=== PATIENT | male | born 1990 | race Two or more races ===

== ENCOUNTER 2017-12-22 15:41 | Emergency (ER) | payer OTHER ==
[~2017-12-22] VITALS: Ht 175.3 cm; Wt 78.5 kg
[2017-12-22 15:49] VITALS: BP 135/92
[2017-12-22] MEDS ORDERED: ALBUTEROL/IPRATROPIUM 2.5MG/0.5MG, 3 ML NPPB ONE (16:00)
[2017-12-22] MEDS ORDERED: ALBUTEROL/IPRATROPIUM 2.5MG/0.5MG, 3 ML ONE (16:10)
== END 2017-12-22 17:20 | disposition home or self-care (01) ==
LOC: ED 17:08
DX: J20.9 Acute bronchitis, unspecified (principal); J45.909 Unspecified asthma, uncomplicated
CPT/HCPCS: 71046; 93005; 94640; 99284; J7512; J7620

== ENCOUNTER 2020-06-05 19:34 | Inpatient (IN) | payer OTHER ==
[~2020-06-05] VITALS: Ht 177.8 cm; Wt 87.3 kg
[2020-06-05] MEDS ORDERED: ALBUTEROL SULFATE 2.5 MG/3 ML ONE ×2 (20:09→20:30)
--- NOTE | 2020-06-05 20:12 | NUR ---
PT PRESENTS WITH EXPIRATORY WHEEZING IN ALL LUNG FEILDS. VERBAL ORDERS FROM DR MOHR TO GIVE ALBUTEROL BREATHING TREATMENT. PT STATES ONLY PMH IS ASTHMA BUT HE HASN'T BEEN DIAGNOSED. ARISTIDES AT BEDSIDE
[2020-06-05] MEDS: ALBUTEROL SULFATE 2.5 MG/3 ML NPPB SCH ×2 (20:21→20:32)
--- NOTE | 2020-06-05 20:30 | NUR ---
DR MOHR UPDATED, PT STILL WHEEZING, NO IMPROVEMENT AFTER FIRST NEB TREATMENT, VERBAL ORDERS TO GIVE 2ND TREATMENT. PO STEROIDS GIVEN WELL.
--- NOTE | 2020-06-05 20:48 | NUR ---
2ND TREATMENT GIVEN. PT STILL WITH EXPIRATORY WHEEZING, PT STATES "IT FEELS LIKE IT GOT TIGHTER".
[2020-06-05] MEDS ORDERED: ALBUTEROL 0.5%, 20ML ONE (21:18)
--- NOTE | 2020-06-05 21:18 | NUR ---
ASSUMED CARE OF PATIENT WHILE PRIMARY RN IS ON BREAK. VS STABLE. OXYGEN ON. PULSE OX ON. RT CALLED.
--- NOTE | 2020-06-05 21:43 | NUR ---
BREAK RN: DR MOHR IN ROOM
--- NOTE | 2020-06-05 21:50 | NUR ---
BREAK RN: BEDSIDE REPORT GIVEN TO JUVENCIO WILSON
[2020-06-05] MEDS ORDERED: MAGNESIUM SULFATE/D5W 100 ML IVPB ONE (22:00)
[2020-06-05] MEDS ORDERED: MAGNESIUM SULFATE/D5W 100 ML ONE (22:01)
[2020-06-05] MEDS ORDERED: hydrALAzine 20 MG/ML, 1ML IVPush PRN (23:30)
[2020-06-05] MEDS ORDERED: ONDANSETRON 2MG/ML, 2ML IVPush PRN (23:30)
[2020-06-05] MEDS ORDERED: ONDANSETRON ODT 4 MG PO PRN (23:30)
[2020-06-05] MEDS ORDERED: POLYETHYLENE GLYCOL 17 GM PACKET PO PRN (23:30)
[2020-06-05] MEDS ORDERED: PROMETHAZINE 25 MG/ML, 1ML IM PRN (23:30)
[2020-06-05] MEDS ORDERED: BISACODYL 10 MG SUPP PR PRN (23:30)
[2020-06-05] MEDS ORDERED: KETOROLAC 30 MG/1 ML IV PRN (23:30)
[2020-06-05] MEDS ORDERED: ACETAMINOPHEN 325 MG TABLET PO PRN (23:30)
[2020-06-05] MEDS ORDERED: DOCUSATE 100 MG CAPSULE PO PRN (23:30)
--- NOTE | 2020-06-06 00:16 | NUR ---
report given to Melanie HENNING
[2020-06-06 00:43] VITALS: BP 159/99
[2020-06-06] MEDS: AZITHROMYCIN 500 MG in SODIUM CHLORIDE 0.9% 250 ML IV SCH ×2 (01:32→23:16)
[2020-06-06] MEDS: SODIUM CHLORIDE 0.9% 1,000 ML IV SCH ×2 (01:33→08:36)
[2020-06-06] MEDS: ALBUTEROL HFA 90 MCG/SPRAY INH SCH ×5 (02:35→19:00)
[2020-06-06] MEDS ORDERED: ALBUTEROL SULFATE 2.5 MG/3 ML NPPB SCH (03:00)
[2020-06-06] MEDS: methylPREDNISolone SOD SUCC 125 MG/2 ML IVPush SCH ×4 (03:15→20:08)
[2020-06-06 04:56] LABS: BASOPHILS % (AUTO) 1 % (0-1); EOSINOPHILS % (AUTO) 0 % (1-7); LYMPHOCYTES % (AUTO) 5 % (22-44); MEAN CORPUSCULAR HEMOGLOBIN 30.6 pg (27.5-34.5); MEAN CORPUSCULAR HGB CONC 34.3 g/dL (33.2-36.2); MEAN PLATELET VOLUME 8.8 fL (7.4-10.4); MONOCYTES % (AUTO) 2 % (2-9); NEUTROPHILS % (AUTO) 92 % (42-75); PLATELET COUNT 276 x10^3/uL (130-400); RED BLOOD COUNT 4.86 x10^6/uL (4.38-5.82); RED CELL DISTRIBUTION WIDTH 13.3 % (9.4-14.8)
[2020-06-06 04:58] LABS: MD NO
[2020-06-06 05:11] LABS: CHLORIDE 104 mmol/L (98-107)
[2020-06-06 05:26] LABS: ALANINE AMINOTRANSFERASE 83 U/L (12-78); ALBUMIN 4.1 g/dL (3.4-5.0); ALKALINE PHOSPHATASE 80 U/L (45-117); ANION GAP 6 mmol/L (5-15); BILIRUBIN,TOTAL 0.4 mg/dL (0.2-1.0); CALCIUM 9.5 mg/dL (8.5-10.1); CHOL/HDL RATIO 2.4; CHOLESTEROL, TOTAL 219 mg/dL (140-239); HDL CHOL % 41 % (26-37); HDL CHOLESTEROL (DIRECT) 90 mg/dL (40-60); LDL CHOLESTEROL,CALCULATED 121 mg/dL (54-169); LDL/HDL RATIO 1.3 (0.5-3.0); TOTAL PROTEIN 8.5 g/dL (6.4-8.2); TRIGLYCERIDES 39 mg/dL (50-200); VLDL CHOLESTEROL 8 mg/dL (0-25)
[2020-06-06 07:11] VITALS: BP 162/85
[2020-06-06] MEDS ORDERED: BUDESONIDE 0.5 MG/2 ML INHA INH SCH (09:00)
[2020-06-06] MEDS ORDERED: FLUTICASONE FUROATE 100MCG/INH INH SCH (09:00)
[2020-06-06 13:09] VITALS: BP 156/85
[2020-06-06] MEDS: LISINOPRIL 5 MG TABLET PO SCH (14:05)
[2020-06-06 19:45] VITALS: BP 171/79
[2020-06-06] MEDS: ALBUTEROL HFA 90 MCG/SPRAY INH PRN (23:50)
[2020-06-07 00:31] VITALS: BP 151/79
[2020-06-07] MEDS: methylPREDNISolone SOD SUCC 125 MG/2 ML IVPush SCH ×2 (02:23→09:46)
[2020-06-07 05:15] LABS: ANION GAP 4 mmol/L (5-15); CALCIUM 9.2 mg/dL (8.5-10.1); CHLORIDE 106 mmol/L (98-107); CREATININE 0.99 mg/dL (0.7-1.3)
[2020-06-07 05:16] LABS: BASOPHILS % (AUTO) 0 % (0-1); EOSINOPHILS % (AUTO) 0 % (1-7); LYMPHOCYTES % (AUTO) 4 % (22-44); MEAN CORPUSCULAR HEMOGLOBIN 30.6 pg (27.5-34.5); MEAN PLATELET VOLUME 9.1 fL (7.4-10.4); MONOCYTES % (AUTO) 4 % (2-9); NEUTROPHILS % (AUTO) 92 % (42-75); PLATELET COUNT 331 x10^3/uL (130-400); RED BLOOD COUNT 4.68 x10^6/uL (4.38-5.82); RED CELL DISTRIBUTION WIDTH 13.3 % (9.4-14.8)
[2020-06-07] MEDS: ALBUTEROL HFA 90 MCG/SPRAY INH PRN (05:34)
[2020-06-07 06:04] LABS: MD SCAN
[2020-06-07 07:54] VITALS: BP 148/78
[2020-06-07] MEDS ORDERED: AZIT500T10 PO (08:47)
[2020-06-07] MEDS ORDERED: ALBU18HF INH (08:47)
[2020-06-07] MEDS ORDERED: FLUT100B INH (08:47)
[2020-06-07] MEDS ORDERED: METH4TAB2 PO (08:47)
[2020-06-07] MEDS ORDERED: LISI5TAB7 PO (08:47)
[2020-06-07] MEDS ORDERED: FLUTICASONE FUROATE 100MCG/INH INH SCH (09:00)
[2020-06-07] MEDS: LISINOPRIL 5 MG TABLET PO SCH (09:47)
[2020-06-07] MEDS: ALBUTEROL HFA 90 MCG/SPRAY INH SCH (09:50)
[2020-06-07 10:50] VITALS: BP 148/84
== END 2020-06-07 11:10 | disposition home or self-care (01) | DRG 189 ==
LOC: ED 21:19 → EDIP 23:11 → 4NE 06-06 00:36 → DCLOUNGE 06-07 11:05
PROVIDERS: ADMIT Internal Medicine; ATTEND Internal Medicine
DX: J96.01 Acute respiratory failure with hypoxia (principal); J45.41 Moderate persistent asthma with (acute) exacerbation; R03.0 Elevated blood-pressure reading, without diagnosis of hypertension; F12.90 Cannabis use, unspecified, uncomplicated; Z87.891 Personal history of nicotine dependence; Z79.899 Other long term (current) drug therapy; Z79.01 Long term (current) use of anticoagulants; Z79.891 Long term (current) use of opiate analgesic; Z80.8 Family history of malignant neoplasm of other organs or systems; Z91.013 Allergy to seafood
CPT/HCPCS: 36415; 99291; J7613; 71045; 80048; 80053; 80061; 83735; 84100; 84443; 85025; 93005; 94640; 94644; G0378; J0456; J2930; J7030; J7050; J7512